=== PATIENT | male | born 1955 | race Caucasian/White ===

== ENCOUNTER 2023-01-01 12:00 | Day surgery (SDC) | payer MEDICARE, OTHER ==
[~2023-01-01] VITALS: Ht 175.3 cm; Wt 108.5 kg
[~2023-01-01 12:00] MED LIST: METFORMIN HCL500 MG PO; PERCOCET 7.5-31 EACH PO
[2023-01-01 12:44] VITALS: BP 123/68
[2023-01-01] MEDS ORDERED: CYCLOBENZAPRINE5 MG PO (12:48)
--- NOTE | 2023-01-01 13:02 | NUR ---
PT UPDATED ON WAIT TIMES. PT AGREEABLE WITH THIS.
--- NOTE | 2023-01-01 14:19 | NUR ---
1416-PATIENT UPDATED ON WAIT TIME. PATIENT VERBALIZED UNDERSTANDING. NO OTHER NEEDS AT THIS TIME.
--- NOTE | 2023-01-01 15:31 | NUR ---
01/01/23 1531 Madeline,Rosa 1525 PT ARRIVED TO PACU ON 2L VIA NC, PT WAKES TO TACTILE STIMULI AND IS REORIENTED TO PACU AND EASILY FALLS RIGHT BACK TO SLEEP.
[2023-01-01 16:15] VITALS: BP 116/78
--- NOTE | 2023-01-03 10:44 | OR ---
[facility] [address], [place] [address] Signed DATE OF OPERATION: 01/01/2023 SURGEON: Cheryl Lora MD PREOPERATIVE DIAGNOSIS: Colon screening. POSTOPERATIVE DIAGNOSIS: Sigmoid diverticulosis. PROCEDURE: Total colonoscopy to cecum. ANESTHESIA: Intravenous sedation; fentanyl 100 mcg and Versed 4 mg. INDICATION: This 67-year-old white man is a patient of Kristy Cobos MD. 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 He has done well since that time. He underwent screening colonoscopy in 2012 showing only diverticulosis. On the basis of interval of time and without symptoms of bleeding, diarrhea, or constipation, he now is here for screening colonoscopy. He understands the risk of bleeding, infection, and perforation related to the procedure and wished to proceed. FINDINGS: The prep was good. Complete colonoscopy was undertaken of the cecum. He had only diverticulosis of the sigmoid and left colon. No sign of polyps or colitis. DESCRIPTION OF PROCEDURE: The patient was brought to the endoscopy suite and placed in the lateral decubitus position, given intravenous sedation to the point of slurred speech and nystagmus. Digital rectal examination was normal. An Olympus video colonoscope was passed in the rectum and manipulated throughout the colon ultimately intubating the cecum itself. The ileocecal valve and appendiceal orifice were normal. Irrigation was undertaken as necessary. The scope was withdrawn and examination throughout showed no sign of abnormality into the left colon where diverticula were noted as well as the sigmoid with similar findings. Retroflexed view of the rectum was normal. Scope was removed and the patient was taken to the recovery room in good condition. Electronically Signed By: CHERYL LORA MD 01/03/23 1044 PATIENT NAME: SUSAN PAYNE OPERATIVE REPORT DATE OF : 53 REPORT #: [id number] PHYSICIAN: CHERYL LORA MD PCP: KRISTY COBOS MD REPORT IS CONFIDENTIAL AND NOT TO BE RELEASED WITHOUT AUTHORIZATION [facility] [address], [place] [address] Signed CONCLUSION DIAGNOSIS: Diverticulosis. PLAN: Recommend high-fiber diet. Also recommend repeat colonoscopy in 10 years, sooner if symptoms should occur. He will return to the ongoing care of Dr. Kristy Cobos. MD YING Muñoz/MODL /[id number] cc: Kristy Cobos MD Copies: KRISTY COBOS MD ~ Electronically Signed By: CHERYL LORA MD 01/03/23 1044 PATIENT NAME: SUSAN PAYNE OPERATIVE REPORT DATE OF : 53 REPORT #: [id number] PHYSICIAN: CHERYL LORA MD PCP: KRISTY COBOS MD REPORT IS CONFIDENTIAL AND NOT TO BE RELEASED WITHOUT AUTHORIZATION
== END 2023-01-01 16:25 | disposition home or self-care (01) ==
LOC: DS 12:00 → OPS 12:00 → DS 13:00 → OPS 16:25
PROVIDERS: ATTEND Surgery
PROC: 0DJD8ZZ Inspection of Lower Intestinal Tract, Via Natural or Artificial Opening Endoscopic (ICD-10-PCS; principal; 2023-01-01 13:00)
DX: Z12.11 Encounter for screening for malignant neoplasm of colon (principal); K57.30 Diverticulosis of large intestine without perforation or abscess without bleeding; E66.01 Morbid (severe) obesity due to excess calories; Z68.35 Body mass index [BMI] 35.0-35.9, adult
CPT/HCPCS: G0121; G0500; J2250; J3010; J7121